=== PATIENT | female | born 1990 | race Caucasian/White ===

== ENCOUNTER 2024-11-29 15:51 | Emergency (ER) | payer OTHER ==
--- OUTSIDE RECORDS SUMMARY | 2024-11-29 15:54 | XMS REPORT | Continuity of Care Document ---
Author Name Unknown Address [address] [facility] [place] [address] Organization [facility] [place] Address [address] [facility] [place] [address] Care Team Providers Care [place] Supervisor Name Role Phone Lisa GANT, Giselle A Primary Care Physician [phone] Radha Hull Attending Clinician Unavailable JERSEY WALKER Attending Clinician Unavailable Jersey Staples Attending Clinician [phone] Unknown, Attending Attending Clinician Unavailab le Doctor Unassigned, [place] Attending Clinician U MARY Irvin K.HVicente Attending Clinician UnavailMary Michelle MD K.H. Attending Clinician [phone] KWAME GAONA Attending Clinician Unavailable Carly Mccormick Attending Clinician [phone] CARLY BONILLA Attending Clinician Unavailable Shannan Navarrete Attending Clinician [phone] SHANNAN DE LOS SANTOS Attending Clinician Unavailable ASHVIN THURSTON Attending Clinician Unavailable Ashvin Thurston MD Attending Clinician [phone] Mabel Neely NP Attending Clinician [phone] Provider, [facility] Attending Clinician Un available Kandace Latif RN Attending Clinician Unavailab hannah Shelton DO, Soraida J Attending Clinician SORAIDA SHELTON Attending Clinician Unavailab Joellen GANT, Giselle Morel Attending Clinician [phone] Radha Hull Admitting Clinician Unavailable SORAIDA SHELTON Admitting Clinician Unavailab young Payers Payer Name Policy Type Policy Number Effective Date Expirati on Date Source [facility] [id number] 2018 00:00:00 Problems Condition Name Condition Details Condition Category Status Onset Date Resolution Date Last Treatment Date Treating Clinician Comments Source Hair loss Hair loss Disease Active 09-24 00:00: 00 [facility] Acute pain of right lower extremity Acute pain of right lower extremity Disease Active 09-24 00:00: 00 [facility] MVP (mitral valve prolapse) MVP (mitral valve prolapse) Disease Active 04-10 00:00: 00 [facility] Essential hypertensi on Essential hypertensi on Disease Active 04-10 00:00: 00 [facility] Allergies, Adverse Reactions, Alerts Allergy Name Allergy Type Status Severity Reaction(s) Onset Date Inactive Date Treating Clinician Comments Source Sulfa (Sulfona mide Antibiot ics) DA Active U UNKNOWN 01-12 00:00: 00 [facility] codeine DA Active U ITCHING 01-12 00:00: 00 [facility] CODEINE DRUG INGREDI Active ITCHING 2014-08 00:00: 00 [facility] SULFA (SULFONA MIDE ANTIBIOT ICS) Drug Class Active Rash 2014-08 00:00: 00 [facility] Sulfa (Sulfona mide Antibiot ics) Propensi ty to adverse reaction s Active Rash 2014-08 00:00: 00 [facility] Codeine Propensi ty to adverse reaction s Active Itching 2014-08 00:00: 00 [facility] Sulfa (Sulfona mide Antibiot ics) Propensi ty to adverse reaction s Active Rash 2014-08 00:00: 00 [facility] Social History Social Habit Start Date Stop Date Quantity Comments Source [facility] to SARS-CoV-2 (event) 2021-09-01 00:00:00 2021-10-01 14:06:00 Not sure [facility] Alcohol intake 2021-10-01 00:00:00 2021-10-01 00:00:00 Current non-drinker of alcohol (finding) [facility] History of Social function 2021-05-10 00:00:00 2021-05-10 00:00:00 [facility] Tobacco use and exposure 2017-06-29 00:00:00 2017-06-29 00:00:00 Smokeless tobacco non-user [facility] Sex Assigned At 1990 00:00:00 1990 00:00:00 [facility] Smoking Status Start Date Stop Date Source Never smoked tobacco [facility] Medications Ordered Medication Name Filled Medication Name Start Date Stop Date Current Medication? Ordering Clinician Indication Dosage Frequency Signature (SIG) Comments Components Source amoxicillin -clavulanat e 875-125 mg per tablet 2022-08 17:16: 07 Yes Amoxicilli n-Clavulan ate Oral 875 mg-125 mg active [facility] benzonatate 200 mg capsule 2022-08 00:00: 00 08-02 05:59 :00 No [id number] 200mg Take 1 capsule by mouth 3 (three) times daily as needed for Cough for up to 10 days. [facility] oseltamivir (TAMIFLU) 75 mg capsule 2022-08 00:00: 00 07-28 05:59 :00 No [id number] 75mg Take 1 capsule by mouth in the morning and 1 capsule in the evening. Do all this for 5 days. [facility] benzonatate 200 mg capsule 09-20 00:00: 00 10-05 05:59 :00 No [id number] 200mg Take 1 capsule by mouth 3 (three) times daily as needed for Cough for up to 14 days. [facility] azelastine 137 mcg (0.1 %) nasal spray 05-10 00:00: 00 Yes [id number] 1{spray } Use 1 Savanna in each nostril 2 (two) times daily. Use in each nostril as directed [facility] meloxicam 15 mg tablet 09-24 00:00: 00 Yes [id number] 15mg Take 1 tablet by mouth once daily as needed for Pain. Take with food. [facility] RECLIPSEN, 28, 0.15-0.03 mg per tablet 09-09 00:00: 00 Yes TK 1 T PO QD [facility] Immunizations Ordered Immunization Name Filled Immunization Name Date Status Comments Source TDAP 2017-04-10 00:00:00 Completed [facility] TDAP 2017-04-10 00:00:00 Completed [facility] TDAP Unknown Completed [facility] TDAP Unknown Completed [facility] TDAP Unknown Completed [facility] TDAP Unknown Completed [facility] Vital Signs Vital Name Observation Time Observation Value Comments S ource Systolic blood pressure 2023-07-22 23:26:00 134 mm[Hg] [facility] Diastolic blood pressure 2023-07-22 23:26:00 89 mm[Hg] [facility] Heart rate 2023-07-22 23:26:00 104 /min [facility] Body temperature 2023-07-22 23:26:00 37.11 Kristen [facility] Respiratory rate 2023-07-22 23:26:00 16 /min [facility] Body weight 2023-07-22 23:26:00 78.109 kg [facility] BMI 2023-07-22 23:26:00 27.79 kg/m2 [facility] Oxygen saturation in Arterial blood by Pulse oximetry 2023-07-22 23:26:00 99 /min [facility] Systolic blood pressure 2021-10-01 20:28:00 127 mm[Hg] [facility] Diastolic blood pressure 2021-10-01 20:28:00 83 mm[Hg] [facility] Heart rate 2021-10-01 20:25:00 94 /min [facility] Respiratory rate 2021-10-01 20:25:00 20 /min [facility] Body height 2021-10-01 20:25:00 167.6 cm [facility] Body weight 2021-10-01 20:25:00 81.647 kg [facility] BMI 2021-10-01 20:25:00 29.05 kg/m2 [facility] Oxygen saturation in Arterial blood by Pulse oximetry 2021-10-01 20:25:00 97 /min [facility]ina [facility] Procedures Procedure Date / Time Performed Performing Clinicia n Source POCT MOLECULAR FLU 2023-07-22 23:27:00 Unknown, Attend [facility] CONSENT/REFUSAL FOR DIAGNOSIS AND TREATMENT 2023-07-22 23:12:04 Doctor Unassigned, [place] [facility] REFERRAL- REQUEST/RESPONSE 2022-09-20 06:01:00 Doctor Unassigned, [place] [facility] Encounters Start Date/Time End Date/Time Encounter Type Admission Type Attending Clinicians Care Facility Care Department Encounter ID Source 2021-06-26 20:57:47 Emergency [facility] [id number] [facility] 2023-10-16 14:51:00 2023-10-16 14:51:00 Outpatient AMINA Hull Radha [facility] [id number] [facility] 2023-07-22 17:20:00 2023-07-22 17:55:43 Outpatient JERSEY SUTHERLAND [facility] [id number] [facility] 2023-07-22 17:20:00 2023-07-22 17:55:43 Urgent Care Jersey Walker Unknown, Attending [facility] TONO PETER?[facility] 1.840.114 350.1.13.10 4.2.7.2.686 [id number] [facility] 2023-07-22 00:00:00 2023-07-22 00:00:00 Orders Only Doctor Unassigned, [place] [facility] 1.840.114 350.1.13.10 4.2.7.2.686 [id number] [facility] 2022-09-20 00:00:00 2022-09-20 00:00:00 Orders Only Doctor Unassigned, [place] [facility] 1..840.114 350.1.13.10 4.2.7.2.686 [id number] [facility] 2021-10-18 13:00:00 2021-10-18 13:00:00 Outpatient R MARY MONTES [facility] [id number] [facility] 2021-10-18 13:00:00 2021-10-18 13:00:00 Outpatient R MARY MONTES [facility] [id number] [facility] 2021-10-01 14:30:00 2021-10-01 15:22:47 Outpatient R MARY MONTES [facility] [id number] [facility] 2021-10-01 14:30:00 2021-10-01 15:22:47 Office Visit Mary Montes [facility] ..840.114 350.1.13.10 4.2.7.2.686 [id number] [facility] 2021-10-01 14:30:00 2021-10-01 15:22:47 Outpatient R MARY MONTES [facility] [id number] [facility] 2021-10-01 00:00:00 2021-10-01 00:00:00 Orders Only Doctor Unassigned, [place] [facility] .840.114 350.1.13.10 4.2.7.2.686 [id number] [facility] 2021-09-22 09:40:00 2021-09-22 09:40:00 Outpatient R KWAME GAONA [facility] [id number] [facility] 2021-09-20 11:45:00 2021-09-20 23:59:00 Hospital Encounter Carly Bonilla [facility] TON[facility] PETER?[facility] 1.840.114 350.1.13.10 4.2.7.2.686 [id number] [facility] 2021-09-20 10:30:00 2021-09-20 12:09:37 Outpatient R CARLY BONILLA [facility] [id number] [facility] 2021-09-20 10:30:00 2021-09-20 12:09:37 [facility] 1.840.114 350.1.13.10 4.2.7.2.686 [id number] [facility] 2021-09-20 10:30:00 2021-09-20 12:09:37 Outpatient R CARLY BONILLA [facility] [id number] [facility] 2021-09-20 00:00:00 2021-09-20 00:00:00 Patient Secure Msg Carly Bonilla [facility] 1.840.114 350.1.13.10 4.2.7.2.686 [id number] [facility] 2021-05-24 00:00:00 2021-05-24 00:00:00 [facility] 1..840.114 350.1.13.10 4.2.7.2.686 [id number] [facility] 2021-05-24 00:00:00 2021-05-24 00:00:00 Patient Secure Msg Shannan De Los Santos [facility] 1.840.114 350.1.13.10 4.2.7.2.686 [id number] [facility] 2021-05-21 12:22:57 2021-05-21 13:52:27 Office Visit [facility] 1.2.840.114 350.1.13.10 4.2.7.2.686 [id number] [facility] 2021-05-21 13:00:00 2021-05-21 13:00:00 Outpatient R SHANNAN DE LOS SANTOS [facility] [id number] [facility] 2021-05-10 12:00:00 2021-05-10 12:00:00 Outpatient R BERTRAND ASHVIN [facility] [id number] [facility] 2021-05-10 11:21:53 2021-05-10 11:41:53 Urgent Care Bertrand Ash[facility] 1.2.840.114 350.1.13.10 4.2.7.2.686 [id number] [facility] 2020-09-28 11:07:00 2020-09-28 13:24:00 Emergency Brandonbridget Mabel Vishal [facility] 1.2.840.114 350.1.13.10 4.2.7.2.686 [id number] [facility] 2020-09-28 10:11:37 2020-09-28 10:31:37 Urgent Care Provider, [facility] Carly Bonilla [facility] 1.2.84.114 350.1.13.10 4.2.7.2.686 [id number] [facility] 2020-09-28 10:20:00 2020-09-28 10:20:00 Outpatient R [facility] [id number] [facility] 2020-09-28 00:00:00 2020-09-28 00:00:00 Orders Only Doctor Unassigned, [place] [facility] 1.2.840.114 350.1.13.10 4.2.7.2.686 [id number] [facility] 2020-09-28 00:00:00 2020-09-28 00:00:00 Telephone Kandace Latif [facility] 1.2840.114 350.1.13.10 4.2.7.2.686 [id number] [facility] 2019-10-18 00:00:00 2019-10-18 00:00:00 Patient Secure Msg Doctor Unassigned, [place] [facility] 1.2.840.114 350.1.13.10 4.2.7.2.686 [id number] [facility] 2019-10-02 00:00:00 2019-10-02 00:00:00 Orders Only Doctor Unassigned, [place] [facility] 1.2840.114 350.1.13.10 4.2.7.2.686 [id number] [facility] 2019-09-30 14:47:15 2019-09-30 16:52:00 Emergency Soraida Shelton [facility] 1.840.114 350.1.13.10 4.2.7.2.686 [id number] [facility] 2019-09-30 14:47:15 2019-09-30 16:52:00 Emergency X SORAIDA SHELTON [facility] ERT [id number] [facility] 2019-09-30 00:00:00 2019-09-30 00:00:00 Telephone Giselle Gonzalez [facility] Lar[facility] 1.840.114 350.1.13.10 4.2.7.2.686 [id number] [facility] 2019-09-30 00:00:00 2019-09-30 00:00:00 Orders Only Doctor Unassigned, [place] [facility] 1.2.840.114 350.1.13.10 4.2.7.2.686 [id number] [facility] 2019-09-25 00:00:00 2019-09-25 00:00:00 Telephone Giselle Gonzalez [facility] Office [facility] 1.2.840.114 350.1.13.10 4.2.7.2.686 [id number] [facility] 2019-09-25 00:00:00 2019-09-25 00:00:00 Case Management Giselle Gonzalez [facility] 1.2.840.114 350.1.13.10 4.2.7.2.686 [id number] [facility] 2019-09-24 10:45:54 2019-09-24 11:29:12 Office Visit Giselle Gonzalez [facility] 1.2.840.114 350.1.13.10 4.2.7.2.686 [id number] [facility] 2019-09-24 00:00:00 2019-09-24 00:00:00 Patient Secure Msg Giselle Gonzalez [facility] 1.2.840.114 350.1.13.10 4.2.7.2.686 [id number] [facility] 2019-09-24 00:00:00 2019-09-24 00:00:00 Orders Only Doctor Unassigned, [place] [facility] 1.2.840.114 350.1.13.10 4.2.7.2.686 [id number] [facility] Results Test Description Test Time Test Comments Results Resul t Comments Source - DUP AB/PEL/SC/LTD 2023-10-16 16:53:00 [facility] : 1990 Sex: F * Patient Name: VINNY LOPEZ Unit No: [id number] EXAMS: CPT CODE: [id number] DUP AB/PEL/SC/LTD 70442 CLINICAL INDICATION: PELVIC PAIN. Last menstrual period was September 29, 2023. COMPARISON: None available. TECHNIQUE: Transabdominal and endovaginal sonography was performed FINDINGS: The uterus measures 8.8 cm in length, 3.8 cm AP and 4.7 cm transverse. The endometrium measures 0.4 cm on endovaginal images. There is no focal myometrial abnormality The right ovary measures 4.4 cm x 3.2 cm x 4.8 cm on endovaginal images. Arterial and venous blood flow on color and spectral Doppler interrogation. There is a hypoechoic structure within the right ovary measuring 3.0 x 2.2 x 2.1 cm. Additional hypoechoic structure within the right ovary measuring 2.2 x 1.9 x 1.3 cm. The left ovary measures 2.9 cm x 2.0 cm x 2.7 cm on endovaginal images. Arterial and venous blood flow on color and spectral Doppler interrogation. Several follicles are seen within the left ovary. There is no free fluid. IMPRESSION: Physiologic cysts within the right ovary as described above. Otherwise no acute sonographic abnormality within the pelvis. at 1653 Reported and signed by: Cherelle Eaton MD CC: Radha Hull NP Technologist: Jeni Moreno RDMS Probe: Trnscrbd D/ (1652) [email or web address] Orig Print D/T: S: 10/16/2023 (165) [facility] NAME: VINNY LOPEZ Radiology Department PHYS: Radha Christensen DATA CONTROL CLERK [address] : 1990 AGE: 32 SEX: F [place], [place] [address] LOC: F.RAD PHONE #: [phone] EXAM DATE: 10/16/2023 STATUS: REG CLI FAX #: [phone] RAD NO: Page 1 Signed Report Patient Name: VINNY LOPEZ Unit No: [id number] EXAMS: CPT CODE: [id number] DUP AB/PEL/SC/LTD 62423 (Continued) [facility] NAME: VINNY LOPEZ Radiology Department PHYS: Radha Christensen DATA CONTROL CLERK [address] : 1990 AGE: 32 SEX: F [place] [address] LOC: F.RAD PHONE #: [phone] EXAM DATE: 10/16/2023 STATUS: REG CLI FAX #: [phone] RAD NO: Page 2 Signed Report - US TRANSVAGINAL W/PELVIS 2023-10-16 16:53:00 [facility] : 1990 Sex: F * Patient Name: VINNY LOPEZ Unit No: [id number] EXAMS: CPT CODE: [id number] US TRANSVAGINAL W/PELVIS 95418 CLINICAL INDICATION: PELVIC PAIN. Last menstrual period was September 29, 2023. COMPARISON: None available. TECHNIQUE: Transabdominal and endovaginal sonography was performed FINDINGS: The uterus measures 8.8 cm in length, 3.8 cm AP and 4.7 cm transverse. The endometrium measures 0.4 cm on endovaginal images. There is no focal myometrial abnormality The right ovary measures 4.4 cm x 3.2 cm x 4.8 cm on endovaginal images. Arterial and venous blood flow on color and spectral Doppler interrogation. There is a hypoechoic structure within the right ovary measuring 3.0 x 2.2 x 2.1 cm. Additional hypoechoic structure within the right ovary measuring 2.2 x 1.9 x 1.3 cm. The left ovary measures 2.9 cm x 2.0 cm x 2.7 cm on endovaginal images. Arterial and venous blood flow on color and spectral Doppler interrogation. Several follicles are seen within the left ovary. There is no free fluid. IMPRESSION: Physiologic cysts within the right ovary as described above. Otherwise no acute sonographic abnormality within the pelvis. at 1653 Reported and signed by: Cherelle Eaton MD CC: Radha Hull NP Technologist: Jeni Moreno RDMS Probe: [id number] Trnscrbd D/ (1653) [email or web address] Orig Print D/T: S: 10/16/2023 (1656) [facility] NAME: VINNY LOPEZ Radiology Department PHYS: Radha Christensen NP [address] : 1990 AGE: 32 SEX: F [place], [place] [address] LOC: Stefan.RAD PHONE #: [phone] EXAM DATE: 10/16/2023 STATUS: REG CLI FAX #: [phone] RAD NO: Page 1 Signed Report Patient Name: VINNY LOPEZ Unit No: [id number] EXAMS: CPT CODE: [id number] US TRANSVAGINAL W/PELVIS 07251 (Continued) [facility] NAME: VINNY LOPEZ Radiology Department PHYS: Radha Christensen DATA CONTROL CLERK [address] : 1990 AGE: 32 SEX: F [place] [address] LOC: CieraRAD PHONE #: [phone] EXAM DATE: 10/16/2023 STATUS: REG CLI FAX #: [phone] RAD NO: Page 2 Signed Report - US PELVIS COMPLETE 2023-10-16 16:53:00 [facility] : 1990 Sex: F * Patient Name: VINNY LOPEZ Unit No: [id number] EXAMS: CPT CODE: [id number] US PELVIS COMPLETE 32343 CLINICAL INDICATION: PELVIC PAIN. Last menstrual period was September 29, 2023. COMPARISON: None available. TECHNIQUE: Transabdominal and endovaginal sonography was performed FINDINGS: The uterus measures 8.8 cm in length, 3.8 cm AP and 4.7 cm transverse. The endometrium measures 0.4 cm on endovaginal images. There is no focal myometrial abnormality The right ovary measures 4.4 cm x 3.2 cm x 4.8 cm on endovaginal images. Arterial and venous blood flow on color and spectral Doppler interrogation. There is a hypoechoic structure within the right ovary measuring 3.0 x 2.2 x 2.1 cm. Additional hypoechoic structure within the right ovary measuring 2.2 x 1.9 x 1.3 cm. The left ovary measures 2.9 cm x 2.0 cm x 2.7 cm on endovaginal images. Arterial and venous blood flow on color and spectral Doppler interrogation. Several follicles are seen within the left ovary. There is no free fluid. IMPRESSION: Physiologic cysts within the right ovary as described above. Otherwise no acute sonographic abnormality within the pelvis. at 1653 Reported and signed by: Cherelle Eaton MD CC: Radha Hull NP Technologist: Jeni Moreno RDMS Probe: Trnscrbd D/ (1652) [email or web address] Orig Print D/T: S: 10/16/2023 (1655) [facility] NAME: VINNY LOPEZ Radiology Department PHYS: Radha Christensen NP [address] : 1990 AGE: 32 SEX: F [place] [address] LOC: CieraRAD PHONE #: [phone] EXAM DATE: 10/16/2023 STATUS: REG CLI FAX #: [phone] RAD NO: Page 1 Signed Report Patient Name: VINNY LOPEZ Unit No: [id number] EXAMS: CPT CODE: [id number] US PELVIS COMPLETE 26507 (Continued) [facility] NAME: VINNY LOPEZ Radiology Department PHYS: Radha Christensen NP [address] : 1990 AGE: 32 SEX: F [place] [address] LOC: F.RAD PHONE #: [phone] EXAM DATE: 10/16/2023 STATUS: REG CLI FAX #: [phone] RAD NO: Page 2 Signed Report [facility]
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
[2024-11-29 19:55] VITALS: BP 156/96; TEMP 98.4; O2SAT 100
== END 2024-11-29 19:39 | disposition home or self-care (01) ==
LOC: ER 15:51
DX: M54.2 Cervicalgia (principal); M54.9 Dorsalgia, unspecified; V49.40XA Driver injured in collision with unspecified motor vehicles in traffic accident, initial encounter
CPT/HCPCS: 72040; 72072; 99283